=== PATIENT | male | born 1930 | race Caucasian/White ===

== ENCOUNTER 2016-11-30 10:55 | Emergency (ER) | payer OTHER ==
--- NOTE | 2016-11-30 10:27 | PROVIDER DOCUMENTATION ---
HPI-Head Injury - General Chief Complaint: Fall Stated Complaint: FAll Time Seen by Provider: 11/30/16 11:33 Source: patient, family, EMS - History of Present Illness-Head Injury Nature of Presenting Problem: A 86 y/o M fron senior care presented after he fell, described as turning and lost balance and fell hit his head, no reported LOC and no distress was sent in for evaluation, had small laceration on occipital region, denies symptoms Head Injury Location: reports: occipital Other injuries associated with incident:: reports: none Quality of Pain: reports: none Severity: reports: mild Onset/Duration: reports: just prior to arrival Timing: reports: still present Method of Injury: reports: fell Any recent trauma/injury?: reports: none Loss of Consciousness: no loss of consciousness Modifying Factors: improves with: nothing Locality of Occurance: Other Similar Symptoms Previously?: No Recently seen or treated by another doctor?: No Review of Systems - Adult - REVIEW OF SYSTEMS - ADULT Constitutional: reports: no symptoms reported Eyes: reports: no symptoms reported Ears, Nose, Mouth & Throat: reports: no symptoms reported Cardiovascular: reports: no symptoms reported Respiratory: reports: no symptoms reported Gastrointestinal: reports: no symptoms reported Genitourinary: reports: no symptoms reported Musculoskeletal: reports: no symptoms reported Integumentary: reports: no symptoms reported Neurological: reports: no symptoms reported Psychiatric: reports: no symptoms reported Endocrine: reports: no symptoms reported Hematologic/Lymphatic: reports: no symptoms reported Allergic/Immunologic: reports: no symptoms reported All Other Systems: Reviewed and Negative Past History - Adult - PAST MEDICAL HISTORY-ADULT Review of Records: reports: Old Records Reviewed, Nursing Assessment Review, Medications Reviewed, Social history reviewed & non-contributory. Major Childhood Illnesses: reports: denies history Cardiovascular: reports: denies history Respiratory: reports: denies history Gastrointestinal: reports: denies history Obstetrical/Gynecological: reports: denies history Genitourinary: reports: denies history Musculoskeletal: reports: denies history Neurological: reports: denies history Endocrine/Immune: reports: denies history Other Conditions: reports: denies history - FAMILY HISTORY Family History: reviewed, not pertinent Physical Exam- Neurological - Physical Exam-Neuro Initial Vital Signs Reviewed: Yes General Appearance: appears well, alert, no apparent distress Eye Exam: bilateral eye: normal inspection, PERRL, EOMI HENMT: moist mucous membranes, normal ENT inspection, other (1-2 cm laceration on occipital region no FB) Head Injury: negative: active bleeding, Owusu's Sign, contusions, raccoon eyes Neck: non-tender, full range of motion, supple Respiratory: chest non-tender, lungs clear, normal breath sounds, no pleuratic chest pain, no respiratory distress, no accessory muscle use Cardiovascular: normal peripheral pulses, regular rate, rhythm, no edema, no gallop, no JVD, no murmur Abdominal Exam: normal bowel sounds, non tender, soft Extremity: normal range of motion, non-tender, other (gait not tested as 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: normal hearing, normal speech, PERRL Coordination/Gait: normal finger to nose Motor/Sensory: no motor deficit, no sensory deficit, no pronator drift Integumentary: normal color, normal turgor, warm/dry Psych/Mental Status: normal mood/affect, oriented x 3 - Glascow Coma Scale Best Eye Response: (4) open spontaneously Best Verbal Response: (5) oriented Best Motor Response: (6) obeys commands Progress - PLAN OF CARE/RESULTS Progress/Plan/Lab Results: Orders Category Date Time Status ED: Orthostatic Vital Signs (E as directed Care 11/30/16 10:22 Active HEAD/C-SPINE W/O CONTRAST [CT] Stat Exams 11/30/16 10:20 Taken SHOULDER-LEFT [RAD] Stat Exams 11/30/16 10:21 Draft EKG [EKG] Stat Ther 11/30/16 10:21 Ordered Vital Signs Temp Pulse Pulse Pulse Pulse Resp BP 11/30/16 11:51 57 L 18 144/73 11/30/16 10:31 61 61 56 L 11/30/16 10:06 98.4 F 57 L 16 123/74 BP BP BP Pulse Ox 11/30/16 11:51 95 11/30/16 10:31 139/80 132/72 130/69 11/30/16 10:06 96 - REASSESSMENT Reassessment #1 Status: improving - XRAY 1 XRAY Study: Shoulder (no fracture, rotator cuff, as per pt had surgery in the past) - CT/MRI 1 CT Study: Head, Neck (normal exam) Impression: See EMR Report Departure - Departure Time of Disposition Order: 12:30 DIAGNOSIS: Fall Qualifiers: Encounter type: initial encounter Qualified Code(s): W19.XXXA - Unspecified fall, initial encounter Laceration of head Qualifiers: Encounter type: initial encounter Location of open wound of head: scalp Foreign body presence: without foreign body Qualified Code(s): S01.01XA - Laceration without foreign body of scalp, initial encounter Disposition: HOME 01 Certified Medical Emergency: Emergent Condition: Good - Critical Care Note Comments: Pt who presented after fall and had minor head laceration, no sutures and jet required as its superficial, steristrips placed no active bleeding, CT scan no acute problems, XR shoulder showed rotator cuff sees ortho for chronic problems, fall precautions, negative for orthostatics, stable will d/c to have close follow up with PCP
--- NOTE | 2016-11-30 11:24 | Diag Imaging Result Document ---
PROCEDURE NAME: SHOULDER-LEFT - 11/30/2016 LEFT SHOULDER, 3 VIEWS: FINDINGS: There are degenerative changes in the humeral head. The humeral head rides considerably high in the glenoid suggesting rotator cuff tear. There is acromioclavicular arthropathy as well. No evidence of fracture is present. IMPRESSION: Degenerative arthritis and probable rotator cuff tear.
== END 2016-11-30 12:43 | disposition home or self-care (01) ==
LOC: ED 10:55
DX: S01.01XA Laceration without foreign body of scalp, initial encounter (principal); W19.XXXA Unspecified fall, initial encounter
CPT/HCPCS: 70450; 72125; 93005

== ENCOUNTER 2019-03-04 08:01 | Inpatient (IN) ==
--- NOTE | 2019-03-04 08:01 | PROVIDER DOCUMENTATION ---
HPI-Fever - General Stated Complaint: FEVER/CHILLS Time Seen by Provider: 03/04/19 08:01 Source: patient, EMS Unable to obtain history due to:: other (has baseline dementia) Allergies/Adverse Reactions: Patient Allergies Allergy/AdvReac Type Severity Reaction Status Date / Time No Known Allergies Allergy Verified 03/04/19 08:28 Home Medications: Home Medication List Medication Instructions Recorded Confirmed Last Taken Type Bisoprolol/Hctz [Ziac 5/6.25 mg] 1 ea PO DAILY 01/13/19 01/29/19 01/29/19 11:32 History Donepezil [Aricept] 5 mg PO QAM 01/13/19 01/29/19 01/28/19 08:00 History Tamsulosin [Flomax] 0.4 mg PO DAILY 01/13/19 01/29/19 01/28/19 08:00 History Tiotropium Ramona [Spiriva 4 gm INHALATION DAILY 01/13/19 01/29/19 01/28/19 08:00 History Respimat] Trazodone [Desyrel] 2 tab PO QHS 01/13/19 01/29/19 01/28/19 21:00 History - History of Present Illness-Fever Nature of Presenting Problem: Brought from Assisted living for fever, chills, slight AMS, history of frequent UTIs. ALso has cough and COPD, uses home O2. Patient complains of bilateral aches/pains to legs, cogh, chills, and SOB. Fever Severity/Quality: reports: greater than 100.5 F Onset/Duration: reports: this morning Timing: reports: still present Severity: reports: moderate Context: reports: decreased mental status, confusion Recent Illness?: reports: UTI Fever Therapy NEUROLOGY PROFESSOR: Initiated none Cognitive Baseline: alert but disoriented Modifying Factors: improves with: nothing Associated Symptoms: reports: cough, fever/chills, loss of appetite, muscle aches, weakness Similar Symptoms Previously?: No Recently seen or treated by another doctor?: No - Glascow Coma Score Best Eye Response (Lu): (4) open spontaneously Best Verbal Response ([place]): (4) confused conversation Best Motor Response ([place]): (6) obeys commands Lu Total: 14 Review of Systems - Adult - REVIEW OF SYSTEMS - ADULT Constitutional: reports: no symptoms reported Eyes: reports: no symptoms reported Ears, Nose, Mouth & Throat: reports: no symptoms reported Cardiovascular: reports: no symptoms reported Respiratory: reports: no symptoms reported Gastrointestinal: reports: no symptoms reported Genitourinary: reports: no symptoms reported Musculoskeletal: reports: no symptoms reported Integumentary: reports: no symptoms reported Neurological: reports: no symptoms reported Psychiatric: reports: no symptoms reported Endocrine: reports: no symptoms reported Hematologic/Lymphatic: reports: no symptoms reported Allergic/Immunologic: reports: no symptoms reported All Other Systems: Reviewed and Negative Past History - Adult - PAST MEDICAL HISTORY-ADULT Review of Records: reports: Old Records Reviewed, Nursing Assessment Review, Medications Reviewed, Social history reviewed & non-contributory. Major Childhood Illnesses: reports: denies history Cardiovascular: reports: HTN Respiratory: reports: COPD Gastrointestinal: reports: denies history Obstetrical/Gynecological: reports: denies history Genitourinary: reports: cancer (prostate), chronic UTI's Musculoskeletal: reports: denies history Neurological: reports: Alzheimer's Endocrine/Immune: reports: denies history Other Conditions: reports: denies history - PRIOR SURGERIES/PROCEDURES Surgical/Procedure History: reports: reviewed, not pertinent - PRIOR HOSPITALIZATIONS Prior Hospitalizations: reports: for similar symptoms - IMMUNIZATION STATUS Childhood Immunizations: UTD Flu Vaccine: UTD Physical Exam-General - PHYSICAL EXAM-ADULT Initial Vital Signs Reviewed: Yes (bradycardia, tachypnea, otherwise normal) - CONSTITUTIONAL General Appearance: no apparent distress, slow to respond, other (active rigors, audibler ronchi) - EYES Eyes: PERRL/EOMI, pink conjunctivae - HEAD, EARS, NOSE, MOUTH & THROAT HENMT: normocephalic/atraumatic, normal ENT inspection, other (dry, pale mucous membranes) - NECK Neck: non-tender, full range of motion, supple, normal inspection - RESPIRATORY Respiratory: chest non-tender, no pleuratic chest pain, no respiratory distress, no accessory muscle use, decreased breath sounds, rales, rhonchi - CARDIOVASCULAR Cardiovascular: normal peripheral pulses, no edema, no gallop, no JVD, bradycardia, systolic murmur - GASTROINTESTINAL (ABDOMEN) Abdominal Exam: normal bowel sounds, non tender, soft, no organomegaly, no pulsatile mass - GENITOURINARY Male Genitalia: normal genitalia - MUSCULOSKELETAL Back Exam: normal inspection, no CVA tenderness, no vertebral tenderness Extremity: normal range of motion, non-tender, normal gait, normal inspection, no pedal edema, no calf tenderness - SKIN Integumentary: normal color, normal turgor, warm/dry - 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 as tested, grossly normal, no motor/sensory deficits - PSYCHIATRIC Psych/Mental Status: normal mood/affect, normal thought content, normal thought process, other (oriented to name only) Progress - PLAN OF CARE/RESULTS Progress/Plan/Lab Results: Vital Signs - 8 hr 03/04/19 08:20 03/04/19 08:22 03/04/19 09:01 Temperature 98.0 F Pulse Rate 59 L 58 L Respiratory Rate 18 21 Blood Pressure 148/80 148/80 147/75 O2 Sat by Pulse Oximetry 95 95 95 03/04/19 09:20 03/04/19 10:34 03/04/19 11:01 Temperature 98.5 F Pulse Rate 59 L Respiratory Rate 17 Blood Pressure 131/65 123/72 108/61 O2 Sat by Pulse Oximetry 97 96 92 L Laboratory Results - last 24 hr 03/04/19 03/04/19 03/04/19 08:12 08:12 08:12 WBC 12.84 H RBC 4.13 L Hgb 12.5 L Hct 38.4 L MCV 93.0 MCH 30.3 MCHC 32.6 L RDW Std Deviation 14.0 Plt Count 274 MPV 9.6 Immature Gran % (Auto) 0.4 Neut % (Auto) 65.7 Lymph % (Auto) 15.0 L [place] % (Auto) 16.7 H Eos % (Auto) 1.9 Baso % (Auto) 0.3 Immature Gran # (Auto) 0.05 H Neut # (Auto) 8.44 H Lymph # (Auto) 1.93 [place] # (Auto) 2.14 H Eos # (Auto) 0.24 Baso # (Auto) 0.04 PT 14.7 INR 1.07 PTT (Actin FS) 32.4 Specimen Type Sample Site pH pCO2 pO2 HCO3 Base Excess Oxyhemoglobin ABG O2 Sat (Calculated) ABG O2 Saturation ABG Carboxyhemoglobin ABG Methemoglobin Sung Test A-a O2 Difference Total Hemoglobin Lactate Liter Flow Blood Gas Modality FiO2 % Sodium 142 Potassium 4.3 Chloride 101 Carbon Dioxide 29 Anion Gap 12 BUN 19 Creatinine 1.0 Estimated GFR/1.73 m2 > 60 BUN/Creatinine Ratio 19 Glucose 116 H Calculated Osmolality 286 Calcium 8.6 L Total Bilirubin 1.09 H AST 10 ALT 5 L Alkaline Phosphatase 53 Creatine Kinase 25 Troponin T [id number] Pept Total Protein 6.1 L Albumin 3.2 L Globulin 2.9 Albumin/Globulin Ratio 1.1 Plasma Lactate Urine Source Urine Color Urine Turbidity Urine pH Ur Specific [place] Urine Protein Ur Glucose (Stick) Ur Ketones (Stick) Urine Blood Urine Nitrite Urine Bilirubin Urobilinogen Dipstick Urine Leukocytes Urine WBC (Auto) Urine RBC (Auto) U Epithel Cells (Auto) Urine Bacteria (Auto) 03/04/19 03/04/19 03/04/19 08:12 08:12 08:12 WBC RBC Hgb Hct MCV MCH MCHC RDW Std Deviation Plt Count MPV Immature Gran % (Auto) Neut % (Auto) Lymph % (Auto) [place] % (Auto) Eos % (Auto) Baso % (Auto) Immature Gran # (Auto) Neut # (Auto) Lymph # (Auto) [place] # (Auto) Eos # (Auto) Baso # (Auto) PT INR PTT (Actin FS) Specimen Type Sample Site pH pCO2 pO2 HCO3 Base Excess Oxyhemoglobin ABG O2 Sat (Calculated) ABG O2 Saturation ABG Carboxyhemoglobin ABG Methemoglobin Sung Test A-a O2 Difference Total Hemoglobin Lactate Liter Flow Blood Gas Modality FiO2 % Sodium Potassium Chloride Carbon Dioxide Anion Gap BUN Creatinine Estimated GFR/1.73 m2 BUN/Creatinine Ratio Glucose Calculated Osmolality Calcium Total Bilirubin AST ALT Alkaline Phosphatase Creatine Kinase Troponin T 0.023 Tup-U-Pwutwqzwzsp Pept 634 H Total Protein Albumin Globulin Albumin/Globulin Ratio Plasma Lactate 0.9 Urine Source Urine Color Urine Turbidity Urine pH Ur Specific [place] Urine Protein Ur Glucose (Stick) Ur Ketones (Stick) Urine Blood Urine Nitrite Urine Bilirubin Urobilinogen Dipstick Urine Leukocytes Urine WBC (Auto) Urine RBC (Auto) U Epithel Cells (Auto) Urine Bacteria (Auto) 03/04/19 03/04/19 08:25 08:42 WBC RBC Hgb Hct MCV MCH MCHC RDW Std Deviation Plt Count MPV Immature Gran % (Auto) Neut % (Auto) Lymph % (Auto) [place] % (Auto) Eos % (Auto) Baso % (Auto) Immature Gran # (Auto) Neut # (Auto) Lymph # (Auto) [place] # (Auto) Eos # (Auto) Baso # (Auto) PT INR PTT (Actin FS) Specimen Type ARTERIAL Sample Site R RADIAL pH 7.46 H pCO2 45 pO2 96 HCO3 30.5 H Base Excess 7.2 H Oxyhemoglobin 95.4 ABG O2 Sat (Calculated) 16.6 ABG O2 Saturation 98.2 ABG Carboxyhemoglobin 1.90 ABG Methemoglobin 1.0 Sung Test YES A-a O2 Difference 47.0 Total Hemoglobin 12.3 Lactate 0.80 Liter Flow 2.0 Blood Gas Modality CAN[place]ULA FiO2 % 28.0 Sodium Potassium Chloride Carbon Dioxide Anion Gap BUN Creatinine Estimated GFR/1.73 m2 BUN/Creatinine Ratio Glucose Calculated Osmolality Calcium Total Bilirubin AST ALT Alkaline Phosphatase Creatine Kinase Troponin T Jls-V-Attygjfjbmt Pept Total Protein Albumin Globulin Albumin/Globulin Ratio Plasma Lactate Urine Source CATH Urine Color YELLOW Urine Turbidity CLEAR Urine pH 5.5 Ur Specific [place] 1.013 Urine Protein NEGATIVE Ur Glucose (Stick) NEGATIVE Ur Ketones (Stick) NEGATIVE Urine Blood NEGATIVE Urine Nitrite NEGATIVE Urine Bilirubin NEGATIVE Urobilinogen Dipstick NORMAL Urine Leukocytes NEGATIVE Urine WBC (Auto) <10 Urine RBC (Auto) <10 U Epithel Cells (Auto) <10 Urine Bacteria (Auto) NEGATIVE Orders Category Date Time Status Cardiac Monitoring DIRECTED Care 03/04/19 08:04 Active IV Insertion ORDERED Care 03/04/19 08:04 Active CHEST-1 VIEW [RAD] Stat Exams 03/04/19 08:[address] THORAX/ABD/PELVIS W/CON [CT] Stat Exams 03/04/19 10:05 Completed ABG [RESP] Routine Lab 03/04/19 08:25 Completed BLOOD CULTURE [BLDCUL] Stat Lab 03/04/19 08:42 Results CBC WITH DIFF [HEME] Stat Lab 03/04/19 08:12 Completed CK PROFILE [SP CHEM] Stat Lab 03/04/19 08:12 Completed COMPREHENSIVE METABOLIC PANEL [CHEM] Stat Lab 03/04/19 08:12 Completed LACTATE, PLASMA [CHEM] Lab 03/04/19 11:15 Uncollected LACTATE, PLASMA [CHEM] Lab 03/04/19 14:15 Uncollected LACTATE, PLASMA [CHEM] Q3H Lab 03/04/19 08:12 Completed PRO B-NATRIURETIC PEPTIDE Stat Lab 03/04/19 08:12 Completed PROTIME WITH INR [COAG] Stat Lab 03/04/19 08:12 Completed PTT [COAG] Stat Lab 03/04/19 08:12 Completed TROPONIN T Stat Lab 03/04/19 08:12 Completed URINALYSIS W/POSS RFLX CULT [URINALYSIS] Stat Lab 03/04/19 08:42 Completed 0.9% Sodium Chloride Inj [Ns] 1,000 ml Med 03/04/19 08:05 Discontinued IV 999 mls/hr Albuterol 2.5MG/Ipratrop 0.5MG [Duoneb (A & A)] Med 03/04/19 08:05 Discontinued 3 ml INH NOW ONE Piperacillin/Tazobactam [Zosyn] 4.5 gm Med 03/04/19 09:19 Discontinued 0.9% Sodium Chloride Inj [Ns] 100 ml IV NOW Vancomycin 1 gm/Ns Med 03/04/19 09:19 Discontinued 1 gm in 250 ml IV NOW Aerosol Treatments Routine Oth 03/04/19 08:05 Completed Aerosol Treatments Stat Oth 03/04/19 08:05 Completed Oxygen Device Stat Oth 03/04/19 08:04 Completed Result Diagrams: 03/04/19 08:12 03/04/19 08:12 - REASSESSMENT Reassessment #1 Time Reassessed: 11:37 Status: improving (Given Neb treatment and IVF, in case of CAP or post- obstruction pne, given Vanc/Zosyn) - XRAY 1 XRAY: (Given Neb treatment and IVF, in case of CAP or post-obstruction pne, given Vanc/Zosyn. Family called to ER from out of town to speak with social work case manager, they want eventual half-way care, not return to assisted living.) XRAY Study: Chest Impression: Abnormal, See EMR Report (CHEST-1 VIEW - 03/04/2019 INDICATION: sob. fever COMPARISON: 02/14/2019 FINDINGS: There is a left apical pulmonary mass. This measures 4 cm. No infiltrates. Stable COPD. Heart size remains normal. IMPRESSION: Left apical pulmonary mass. Chest CT recommended if this has not already been performed. Electronically signed by Karson Finn 03/04/2019 8:23 AM 03/04/19 08 Interpreting Physician: Karson Finn MD Dictated Date/Time: 03/04/19821 cc: Paul Javier MD; Arielle Lopez MD) - CT/MRI 1 CT Study: Thorax (and abdominal/pelvis) Impression: Abnormal, See EMR Report (EXAM: CT THORAX/ABD/PELVIS W/CON 03/04/2019 HISTORY: left lung mass, new TECHNIQUE: This exam was performed using automated exposure control, adjustment of mA or kV according to patient size, and/or use of iterative reconstruction technique. COMMENT: There are no previous studies available for comparison. There is a mass attached to the mediastinal pleura in the left upper lobe measuring 3.5 x 3.3 cm in the axial plane. There is some emphysematous change and prominence of the interstitial spaces particularly in the left upper lobe. The latter may be related to lymphatic obstruction. There is otherwise no evidence of acute pulmonary disease. There are some nonspecific aorticopulmonary window and paratracheal nodes. One such node on image 41 measures up to 14 mm. There are no pleural fluid collections. There is left hilar adenopathy. There are no apparent filling defects present in the pulmonary arterial branches. The right upper lobe pulmonary artery is somewhat compressed by the adenopathy. There is occlusion of the left upper lobe bronchus. There are spondylotic changes in the thoracic spine. There are degenerative changes in the left shoulder. There are old rib fractures in the right ninth, 10th and 11th ribs. ABDOMEN: There are atherosclerotic calcifications in the aorta and iliac arteries. There is no significant aneurysm and there is calcification present in the proximal superior mesenteric and renal arteries without evidence of occlusion. There are granulomata in the liver. There has been cholecystectomy. There is a cyst in the posterior right lobe on image 15 of the portal venous phase. The adrenal glands are not enlarged. The spleen is not enlarged. The pancreas is normal in appearance. There are cysts in the kidneys. There is no evidence of hydronephrosis. There is extensive colonic diverticulosis and stool is present throughout the colon. The appendix is normal in appearance. There is no evidence of bowel obstruction or retroperitoneal adenopathy. Pelvis: There are severe degenerative disc and facet changes in the lumbar spine. There is no evidence of free fluid. There is slight dilatation of the distal left ureter as it passes over the external iliac vein of uncertain significance. The urinary bladder is not distended. The prostate gland measures 5.1 cm in diameter. IMPRESSION: 1. Left upper lobe malignant appearing mass with bronchial obstruction and hilar adenopathy. This appears to be adherent to the mediastinal pleura. 2. Severe colonic diverticulosis without evidence of acute diverticulitis. No evidence of metastatic disease. Electronically signed by Ok Vaughan 03/04/2019 10:48 AM 03/04/19 1048 Interpreting Physician: Ok Vaughan MD Dictated Date/Time: 03/04/19 1034 cc: Paul Javier MD; Arielle Lopez MD) - CONSULTS/PCP/HOSPITALIST Notification #1 *Consult/PCP/Hospitalist*: JOSE LUIS Goetz Time Discussed: 11:38 (admit to [facility]) Consult Disposition: Will see in ED Departure - Departure Date of Disposition Decision: 03/04/19 Time of Disposition Decision: 11:38 DIAGNOSIS: COPD with exacerbation, Mass of upper lobe of left lung, History of malignant neoplasm of prostate Disposition: ADMITTED INPATIENT 09 Certified Medical Emergency: Emergent Condition: Fair Referrals and Follow-Ups: Arielle Lopez MD [Primary Care Provider] - - Critical Care Note This patient required my direct & personal management of CC.: No Attestation - Physician/ MALIK Attestation Patient care was provided by Advanced Practice Provider:: No The physician spent face to face time with patient:: Yes Advanced Practice Provider documentation review:: Supervising physician onsite and consulted in the evaluation and care of this patient. The physician did have a face to face encounter with the patient.
[2019-03-04] MEDS ORDERED: NS 1,000 ML IV ONE (08:05)
[2019-03-04] MEDS ORDERED: DUONEB (A & A) INH ONE (08:05)
--- NOTE | 2019-03-04 08:25 | Diag Imaging Result Doc PS360 ---
CHEST-1 VIEW - 03/04/2019 INDICATION: sob. fever COMPARISON: 02/14/2019 FINDINGS: There is a left apical pulmonary mass. This measures 4 cm. No infiltrates. Stable COPD. Heart size remains normal. IMPRESSION: Left apical pulmonary mass. Chest CT recommended if this has not already been performed. Electronically signed by Karson Finn 03/04/2019 8:23 AM
[2019-03-04 08:31] LABS: ALLEN TEST YES; BE 7.2 mmoll (-3.0-3.0); BLOOD TYPE ARTERIAL; HCO3-(ACT) 30.5 mmoll (20.0-26.0); O2(CT) 16.6 mL/dL (15.0-23.0); O2HB 95.4 % (95.0-99.0); PCO2(98.6) 45 mmHg (35-45); PO2(98.6) 96 mmHg (60-100); SAMPLE BLOOD; SAO2 98.2 % (95.0-100.0); THB 12.3 g/dL (11.5-17.4); pH(98.6) 7.46 (7.35-7.45)
[2019-03-04 08:32] LABS: MODALITY CANNULA
[2019-03-04 08:33] LABS: BASO# 0.04 X1000 (0.0-0.2); BASO% 0.3 % (0.0-0.8); EOS# 0.24 X1000 (0.0-0.7); EOS% 1.9 % (0.0-10.0); HEMATOCRIT 38.4 % (42.0-52.0); HEMOGLOBIN 12.5 g/dL (14.0-18.0); IMM GRAN# 0.05 X1000 (0.0-0.04); IMM GRAN% 0.4 % (0.0-0.5); LYMPH# 1.93 X1000 (1.2-3.4); MCH 30.3 PG (27-31); MCHC 32.6 g/dL (33-37); MONO# 2.14 X1000 (0.11-0.59); MONO% 16.7 % (1.7-9.3); MPV 9.6 FL (7.4-10.4); NEUT# 8.44 X1000 (1.4-6.5); NEUT% 65.7 % (42.2-75.2); PLT 274 X1000 (130-400); RBC 4.13 XMIL (4.7-6.1); WBC 12.84 X1000 (4.8-10.8)
[2019-03-04 08:45] LABS: INR 1.07; PROTIME 14.7 Seconds (11.0-16.0)
[2019-03-04 08:46] LABS: PTT 32.4 Seconds (22.3-41.8)
[2019-03-04 08:50] LABS: AGAP 12; ALB/GLOB RATIO 1.1; ALBUMIN 3.2 g/dL (3.5-5.0); ALKALINE PHOSPHATASE 53 U/L (32-122); BUN 19 mg/dL (8-22); CALCIUM 8.6 mg/dL (8.8-10.2); CHLORIDE 101 mmol/L (98-107); CK PROFILE 25 U/L (24-204); COSMO 286; ESTIMATED GFR > 60; GLUCOSE 116 mg/dL (70-104); GOT 10 U/L (10-34); GPT 5 U/L (10-44); POTASSIUM 4.3 mmol/L (3.5-5.1); SODIUM 142 mmol/L (136-145); TCO2 29 mmol/L (25-35); TOTAL BILIRUBIN 1.09 mg/dL (0.20-1.00); TOTAL PROTEIN 6.1 g/dL (6.3-8.3)
[2019-03-04 08:51] LABS: URINE SOURCE CATH
[2019-03-04 08:58] LABS: BILIRUBIN URINE NEGATIVE (NEGATIVE); BLOOD URINE NEGATIVE (NEGATIVE); COLOR YELLOW; GLUCOSE URINE NEGATIVE (NEGATIVE); KETONE URINE NEGATIVE (NEGATIVE); LEUKOCYTES URINE NEGATIVE (NEGATIVE); NITRITE URINE NEGATIVE (NEGATIVE); PH URINE 5.5; PROTEIN URINE NEGATIVE (NEGATIVE); SP GRAVITY URINE 1.013; TURBIDITY URINE CLEAR (CLEAR); UROBILINOGEN URINE NORMAL (NORMAL)
[2019-03-04 09:00] LABS: UR EPITHELIAL CELLS <10 /HPF (<10); URINE BACTERIA NEGATIVE /HPF; URINE RBC <10 /HPF (<10); URINE WBC <10 /HPF (<10)
[2019-03-04] MEDS ORDERED: VANCOMYCIN 1 GM/NS 1 GM/250 ML IVPB IV ONE (09:19)
[2019-03-04] MEDS ORDERED: ZOSYN 4.5 GM in NS 100 ML IV ONE (09:19)
--- NOTE | 2019-03-04 10:50 | Diag Imaging Result Doc PS360 ---
EXAM: CT THORAX/ABD/PELVIS W/CON 03/04/2019 HISTORY: left lung mass, new TECHNIQUE: This exam was performed using automated exposure control, adjustment of mA or kV according to patient size, and/or use of iterative reconstruction technique. COMMENT: There are no previous studies available for comparison. There is a mass attached to the mediastinal pleura in the left upper lobe measuring 3.5 x 3.3 cm in the axial plane. There is some emphysematous change and prominence of the interstitial spaces particularly in the left upper lobe. The latter may be related to lymphatic obstruction. There is otherwise no evidence of acute pulmonary disease. There are some nonspecific aorticopulmonary window and paratracheal nodes. One such node on image 41 measures up to 14 mm. There are no pleural fluid collections. There is left hilar adenopathy. There are no apparent filling defects present in the pulmonary arterial branches. The right upper lobe pulmonary artery is somewhat compressed by the adenopathy. There is occlusion of the left upper lobe bronchus. There are spondylotic changes in the thoracic spine. There are degenerative changes in the left shoulder. There are old rib fractures in the right ninth, 10th and 11th ribs. ABDOMEN: There are atherosclerotic calcifications in the aorta and iliac arteries. There is no significant aneurysm and there is calcification present in the proximal superior mesenteric and renal arteries without evidence of occlusion. There are granulomata in the liver. There has been cholecystectomy. There is a cyst in the posterior right lobe on image 15 of the portal venous phase. The adrenal glands are not enlarged. The spleen is not enlarged. The pancreas is normal in appearance. There are cysts in the kidneys. There is no evidence of hydronephrosis. There is extensive colonic diverticulosis and stool is present throughout the colon. The appendix is normal in appearance. There is no evidence of bowel obstruction or retroperitoneal adenopathy. Pelvis: There are severe degenerative disc and facet changes in the lumbar spine. There is no evidence of free fluid. There is slight dilatation of the distal left ureter as it passes over the external iliac vein of uncertain significance. The urinary bladder is not distended. The prostate gland measures 5.1 cm in diameter. IMPRESSION: 1. Left upper lobe malignant appearing mass with bronchial obstruction and hilar adenopathy. This appears to be adherent to the mediastinal pleura. 2. Severe colonic diverticulosis without evidence of acute diverticulitis. No evidence of metastatic disease. Electronically signed by Ok Vaughan 03/04/2019 10:48 AM
--- NOTE | 2019-03-04 14:46 | HISTORY AND PHYSICAL ---
PRIMARY CARE PROVIDER: Arielle Lopez. CHIEF COMPLAINT: Per ED notes, fever, chills, malaise. HISTORY OF PRESENT ILLNESS: Mr. Johnson is an 88-year-old gentleman, who per ED report has a past medical history of frequent UTIs, COPD and uses home O2, as well as a baseline dementia. He cannot really tell me what brought him to the ED except that he was being sent home back to his assisted living. He is alert to his name, date of , president and where he lives. He could not tell me the correct year or where he was. He denied any headache, fever, chills, cough, shortness of breath, chest pain, palpitations, abdominal pain. No nausea, vomiting, or diarrhea. He did state that he does have problems with his urination but he could not really elaborate on what kind. Case Management has spoken with the power of patent prosecution attorney, his son Valentin Johnson, who is currently out of town. He reports they do in fact lives at [facility] in [place]. They have paid caregivers. Son has become increasingly concerned about his decline in mobility status and does want to pursue rehab transition to long-term care. While the patient was being initially worked up for sepsis secondary to a low-grade fever, on his chest x- ray he had a left atypical pulmonary mass that recommend a followup CT. The CT of the chest, abdomen and pelvis showed a left upper lobe malignant-appearing mass with bronchial obstruction and hilar adenopathy. Appears to be adherent to mediastinal pleura. Severe colonic diverticulitis without evidence of acute diverticulitis. No evidence of metastatic disease. The patient had recently been diagnosed with a prostate cancer back in January. He underwent a TURP with Dr. Ramy demarco on January 30. A nuclear bone scan back in February showed multi joint degenerative uptake, most prominent at the shoulders, bandlike increased uptake at the mid thoracic spine. We do not believe that he has been set up with any oncology and we will go ahead and consult Oncology as well as Palliative Care and admit him to the medical telemetry floor for COPD exacerbation. PAST MEDICAL HISTORY: 1. New diagnosis of prostate cancer, now with a left upper lobe malignant- appearing mass with bronchial obstruction and hilar adenopathy. 2. Prostate cancer, recent diagnosis back in January. 3. Frequent UTIs. 4. COPD. 5. Alzheimer's dementia. PAST SURGICAL HISTORY: Status post TURP with Dr. Mccann on 01/30/2019. All others unknown. Patient denied. He does appear to have what appears to look like several skin cancer spots removed off of his head in various places. FAMILY HISTORY: Unknown. SOCIAL HISTORY: He lives at [facility] where he has caregivers. He lives with his . He does have a son who is power of patent prosecution attorney. REVIEW OF SYSTEMS: Hard to obtain secondary to the patient's Alzheimer's dementia, except for those mentioned in HPI. PHYSICAL EXAMINATION: VITAL SIGNS: Temperature is 98.5 degrees, heart rate 51, respirations 18, blood pressure 110/55, O2 is 95% on 2 L nasal cannula. The patient keeps taking it off. He does wear home O2 for his COPD. GENERAL: Mr. Johnson is an 88-year-old male who is lying on the stretcher continually. HEENT: Atraumatic, normocephalic. PERRL. NECK: Supple. Trachea midline. CARDIOVASCULAR: S1, S2 appreciated. No murmurs, gallops, rubs noted. RESPIRATORY: Lung sounds decreased in all lung marcial. GASTROINTESTINAL: Soft, nontender, nondistended. Positive bowel sounds 4 quadrants. SKIN: Appears to be warm, dry, and intact. EXTREMITIES: No clubbing, no cyanosis. Bilateral pedal pulses are palpable. NEUROLOGIC: Patient is alert to name, date of , president. He does not know the current year or his current location, but he knows he lives at [facility] in [place]. DIAGNOSTIC DATA: Per HPI. LABORATORY DATA: White count 12, hemoglobin and hematocrit 12 and 38, platelet count is 274,000. Sodium 142, potassium 4.3, BUN 19, creatinine 1, blood glucose is 116. T bilirubin is 1.09. ProBNP 634. Albumin 34. Plasma lactate was 0.9. Urinalysis is negative for bacteria or nitrites. ASSESSMENT AND PLAN: 1. Left upper lobe malignant-appearing mass with bronchial obstruction and hilar adenopathy. Appears to be adherent to the mediastinal pleura. We will consult Palliative Care, Telemetry Tech and Pulmonary as well as Oncology. 2. Known prostate cancer. Patient underwent a TURP with Dr. Mccann back in January 2019. 3. Chronic obstructive pulmonary disease on home O2, mild exacerbation. We will continue with bronchodilators, supplemental O2, aggressive pulmonary toilet, IV antibiotics. 4. Questionable postobstructive pneumonia. We will continue with IV antibiotics. Follow Pulmonology's recommendations. 5. Chronic urinary tract infections. The patient denies any urinary symptoms. His urinalysis is negative. 6. Alzheimer's dementia. Aware. 7. Further recommendations to follow physician evaluation, laboratory and diagnostic data. Dictated by JOSE LUIS Peoples for Jordana Carreno MD cc: MD Arielle Cisneros MD William E. Hughes, MD Heather Shah, MD I performed a face to face encounter on the patient. I reviewed all imaging and labs on the patient. I agree with the H&P as dictated. is a 88 year old male with a history of dementia, prostate cancer, and COPD who was sent from a local assisted living facility due to fever, chills and general malaise. The patient initially had a chest x ray done that revealed a possible lung mass. A CT of the chest, abdomen and pelvis was done that revealed a left upper lobe mass with bronchial obstruction and hilar adenopathy. On exam, the patient has diminished breath sounds in all lung marcial. No wheezing, rales or rhonchi were noted. The patient will be admitted for further treatment and evaluation. Will consult pulmonary and oncology. The patient will be scheduled for a CT guided lung biopsy. JODY
[2019-03-04] MEDS: DUONEB (A & A) INH SCH ×3 (15:30→23:05)
[2019-03-04] MEDS: LEVAQUIN 500 MG/D5W 500 MG/100 ML IVPB IV SCH (18:19)
[2019-03-04] MEDS: SOLU-MEDROL IV SCH (18:21)
[2019-03-04] MEDS ORDERED: DESYREL PO SCH (21:00)
--- NOTE | 2019-03-04 21:02 | HEMO/ONC CONSULTATION ---
DATE: 03/04/2019 REQUESTING: Dr. Carreno. REASON FOR CONSULTATION: Prostate cancer and lung mass. HISTORY OF PRESENT ILLNESS: Mr. Johnson is an 88-year-old gentleman with some dementia, who lives with his in an assisted living facility with around the clock caregivers. He is unable to provide much history at this time because of his dementia, but apparently he was developing worsening difficulty with urination, fevers, and chills. He was brought to the emergency room where he was evaluated for the same. PAST MEDICAL HISTORY: Significant for: 1. Prostate cancer diagnosed in January 2019, status post TURP with Dr. Mccann. 2. Alzheimer's. 3. COPD. 4. Frequent UTIs. PAST SURGICAL HISTORY: 1. TURP, January 2019. 2. Unable to obtain any further medical history as patient is unaccompanied and is unsure of his medical history. FAMILY HISTORY: Unable to be obtained. SOCIAL HISTORY: Per the emergency room and the nurses, he lives at [facility] with caregivers and his . His son is power of claims attorney. ALLERGIES: Reviewed, per the chart. MEDICATIONS: Reviewed, per the chart. REVIEW OF SYSTEMS: Unable to be obtained secondary to dementia. PHYSICAL EXAMINATION: Vital Signs: At the time of consultation, temperature 97.4, pulse 58, respiratory rate 19, blood pressure 131/73, O2 saturation 100% on 2 L. Weight is 170 pounds. General: This is a chronically ill-appearing, elderly man in no acute distress, but with some rigors during consultation, lying in the hospital bed, accompanied by the nurses with no family at the bedside. Eyes: Sclerae anicteric. Cardiovascular: Regular rate and rhythm. Normal S1, S2. No murmurs, rubs, or gallops. Pulmonary: Lungs clear to auscultation bilaterally without wheezes, rales, or rhonchi. GI: Abdomen is soft, nontender, nondistended, with normoactive bowel sounds. Extremities: No clubbing, cyanosis, or edema. 2+ pulses x4. Neurologic: Alert and oriented to name only, but is disoriented otherwise. Moves all extremities well. Gait not assessed as patient is in the hospital bed during consultation. LABORATORY DATA: White count 12.8, hemoglobin 12.5, platelet count 274,000. INR 1.07. ABGs: PH 7.46, pCO2 45, pO2 96. Chemistry panel notable for calcium 8.6, total bilirubin 1.09, AST 10, ALT 5, alkaline phosphatase 53, troponin 0.023, total protein 6.1, albumin 3.2. Urinalysis is unremarkable. Blood cultures are pending. IMAGING: Chest, abdomen, and pelvis CT shows a left upper lobe 3.5 x 3.3 cm mass attached to the mediastinal pleura, with emphysematous changes and possible lymphatic obstruction, as well as nonspecific AP window and paratracheal adenopathy and occlusion of the left upper lobe bronchus. There is no evidence of metastatic disease. Nuclear bone scan, from 02/12/2019, showed multijoint degenerative uptake, most prominent at the shoulders. PATHOLOGY: 01/29/2019, prostatic adenocarcinoma, Diego 4 + 4 equals 8 in 3 cores on the left prostate gland, and prostate adenocarcinoma grade, [place] 3 + 3 equals 6 in 1 core on the left as well as 1 core on the right. Prostate cancer, Diego score 3 + 4 equals 7 in 3 cores on the right. ASSESSMENT AND PLAN: 1. Prostate cancer: The patient is status post transurethral resection of prostate with Dr. Mccann, and is being followed by Dr. Mccann, and is on Casodex at this time. I will defer further management of his prostate cancer to Dr. Mccann as it does not appear to be an acute issue. 2. Lung mass: Highly suspicious for malignancy. We will get in touch with the patient's son, who has power of claims attorney, to discuss goals of care and extent of workup that the patient and his family desire. He certainly could undergo bronchoscopy and biopsy of the suspicious lesion as it is endobronchial. However, he is a poor candidate for therapy, which would likely include chemotherapy and radiation. We will discuss goals of care. Palliative Care consult has already been placed. We will follow up through his hospital stay. 3. Fevers and chills: Suspicious for postobstructive pneumonia. He received a dose of vancomycin and Zosyn in the emergency room, and is now on Levaquin. Follow up on cultures. Thank you for this consultation and the opportunity to participate in the care of this patient. I will follow along and leave further recommendations as indicated. cc: MD Jordana Schneider MD
[2019-03-05] MEDS: SOLU-MEDROL IV SCH ×5 (01:35→21:19)
--- NOTE | 2019-03-05 02:17 | CONSULTATION ---
DATE OF CONSULTATION: 03/04/2019 REQUESTING PROVIDER: JOSE LUIS Peoples. REASON FOR CONSULTATION: Metastatic lung cancer from Prostate. HISTORY OF PRESENT ILLNESS: This is an 88-year-old male with a medical history of COPD, prostatic cancer, facial skin cancer, frequent UTIs, hypertension, and Parkinson disease. He presented to the ER from [facility] with fever, chills, and slight altered mental status. Initial workup in the ER revealed COPD exacerbation, left upper lobe malignant appearing mass with bronchial obstruction and hilar adenopathy, and questionable postobstructive pneumonia. He has been admitted to the medical floor for further evaluation and management. I saw patient at around 1530. At that time, he was resting in bed with no acute cardiac or pulmonary distress. He did appear drowsy. He had constant rhythmic fine tremors on his upper body and bilateral upper extremities. He reported that he was cold and asked me to put more blankets on him. He stated he had fever and shortness of breath this morning and that is why he was sent to the hospital. He reported he has a good appetite, but he could not feed himself because of tremors. He reported that he does not use oxygen at home, and he has been on oxygen since this morning. He denies cough, wheezing, chest pain, or abdominal pain. He also stated that he was tired and he would like to get some rest. The nurse at the bedside reported that she just talked to the patient's son, Valentin, over the phone. Per his son, patient apparently was alert and oriented x3, and was able to answer questions appropriately. PAST MEDICAL HISTORY: Obtained from patient's son, Valentin. 1. COPD. 2. Prostatic cancer diagnosed in January, status post TURP on 01/30/2019. Followed by Dr. Mccann. 3. Facial skin cancer status post radiation. 4. Frequent UTIs. 5. Hypertension. 6. Parkinson disease. SOCIAL HISTORY: The patient lives at [facility] assisted living with his . His son, Valentin, is his power of attorney at law. FAMILY HISTORY: Unknown. ALLERGIES: No known drug allergies. REVIEW OF SYSTEMS: Difficult to be completed, except for those mentioned in HPI. PHYSICAL EXAMINATION: Vital Signs: Temperature 98.5 degrees, blood pressure 110/55, pulse 51, respiratory rate 18, oxygen saturation 95% on nasal cannula at 2 L. General: Chronically ill- appealing, resting in bed with no acute cardiac or pulmonary distress. The patient has constant rhythmic fine tremors on his upper body and bilateral upper extremities. HEENT: Atraumatic. Trachea midline. Mucosa pink and moist. Respiratory: Even and unlabored auscultation. Symmetrical excursion. Auscultation revealed prolonged expiratory phase and moderate expiratory wheezing bilaterally, and early inspiratory crackles bibasilarly with diminished breathing sounds bilaterally. Cardiovascular: Regular rate and rhythm. Gastrointestinal: Bowel sounds normoactive in all 4 quadrants. Soft, nontender, nondistended. Extremities: Trace pedal edema. No cyanosis. No clubbing. Dorsalis pedis 2+ bilaterally. Neurologic: Alert, oriented to person, place, and situation, but not time. Speech fluent. Follows commands. LAB DATA: White blood cells 12.84, hemoglobin 12.5, hematocrit 38.4, platelet 274,000. Sodium 142, potassium 4.3, chloride 101, carbon dioxide 29, BUN 19, creatinine 1.0. Glucose 116. ProBNP 634. ABG, pH 7.46, pCO2 of 45, PO2 of 96, HCO3 is 30.5, base excess 7.2, and oxyhemoglobin 95.4. IMAGING DATA: CT thorax, abdomen and pelvis with contrast revealed left upper lobe malignant-appearing mass with bronchial obstruction and hilar adenopathy. This appears to be adherent to the mediastinal pleura. Severe colonic diverticulosis without evidence of acute diverticulitis. No evidence of metastatic disease. ASSESSMENT: This is an 88-year-old male with a medical history of chronic obstructive pulmonary disease, prostate cancer, facial skin cancer, frequent urinary tract infection, hypertension, and Parkinson disease. He has been admitted to the medical floor today with chronic obstructive pulmonary disease exacerbation, left upper lobe malignant appearing mass with bronchial obstruction and hilar adenopathy, and questionable postobstructive pneumonia. 1. Acute hypoxic respiratory failure. 2. Chronic obstructive pulmonary disease exacerbation. 3. Left upper lobe malignant-appearing mass with bronchial obstruction and hilar adenopathy, suspected metastatic prostate cancer. The patient's son, Curtis, wants to proceed with the CT- guided biopsy. 4. Recently diagnosed prostate cancer. Followed by Dr. Mccann. 5. Questionable postobstructive pneumonia. PLAN: 1. Continue supplemental oxygen. 2. Continue antibiotic, steroid, and bronchodilators. 3. CT-guided biopsy scheduled. 4. Follow-up with chest x-ray, CBC, CMP, and blood culture. 5. Further recommendations pending hospital course. Thank you for the courtesy of this consult. Dictated by JOSE LUIS Scott for Ricardo Hyde MD cc: JOSE LUIS Scott MD [facility]
[2019-03-05] MEDS: DUONEB (A & A) INH SCH ×5 (03:05→21:10)
[2019-03-05 06:45] LABS: BASO# 0.01 X1000 (0.0-0.2); BASO% 0.1 % (0.0-0.8); HEMATOCRIT 35.5 % (42.0-52.0); HEMOGLOBIN 11.6 g/dL (14.0-18.0); IMM GRAN# 0.02 X1000 (0.0-0.04); IMM GRAN% 0.2 % (0.0-0.5); LYMPH# 0.67 X1000 (1.2-3.4); MCH 30.4 PG (27-31); MCHC 32.7 g/dL (33-37); MCV 92.9 FL (81-99); MONO# 0.68 X1000 (0.11-0.59); MONO% 6.1 % (1.7-9.3); MPV 9.9 FL (7.4-10.4); NEUT# 9.73 X1000 (1.4-6.5); NEUT% 87.6 % (42.2-75.2); PLT 250 X1000 (130-400); RBC 3.82 XMIL (4.7-6.1); RDW 13.8 % (11.5-14.5); WBC 11.11 X1000 (4.8-10.8)
[2019-03-05 06:56] LABS: AGAP 14; ALB/GLOB RATIO 0.8; ALBUMIN 2.9 g/dL (3.5-5.0); ALKALINE PHOSPHATASE 48 U/L (32-122); BUN 20 mg/dL (8-22); CALCIUM 8.4 mg/dL (8.8-10.2); CHLORIDE 101 mmol/L (98-107); COSMO 285; ESTIMATED GFR > 60; GLUCOSE 150 mg/dL (70-104); GOT 10 U/L (10-34); GPT 6 U/L (10-44); POTASSIUM 3.9 mmol/L (3.5-5.1); SODIUM 140 mmol/L (136-145); TCO2 25 mmol/L (25-35); TOTAL BILIRUBIN 0.45 mg/dL (0.20-1.00); TOTAL PROTEIN 6.7 g/dL (6.3-8.3)
--- NOTE | 2019-03-05 08:17 | Diag Imaging Result Doc PS360 ---
EXAM: CHEST-PORTABLE 03/05/2019 HISTORY: short of breath TECHNIQUE: AP portable upright at 0805 COMMENT: There is a left apical mass. This was also demonstrated on 03/04/2019 on plain radiography and CT. Considering differences in technique there has been no appreciable change. IMPRESSION: Stable chest. Electronically signed by Ok Vaughan 03/05/2019 8:15 AM
--- NOTE | 2019-03-05 12:07 | Diag Imaging Result Doc PS360 ---
CHEST-2 VIEWS - 03/05/2019 11:58 AM INDICATION: POST LUNG BIOPSY COMPARISON: 8:05 AM FINDINGS: There is no visible pneumothorax. IMPRESSION: No complication. Electronically signed by Karson Finn 03/05/2019 12:05 PM
[2019-03-05] MEDS: FLOMAX PO SCH (12:39)
[2019-03-05] MEDS: CASODEX PO SCH (12:39)
[2019-03-05] MEDS: ARICEPT PO SCH (12:40)
[2019-03-05] MEDS: LEVAQUIN 500 MG/D5W 500 MG/100 ML IVPB IV SCH (13:40)
--- NOTE | 2019-03-05 16:05 | Diag Imaging Result Doc PS360 ---
CT GUIDED BIOPSY LUNG - 03/05/2019 INDICATION: ASTHAM/COPD TECHNIQUE: The risks and benefits of the procedure were discussed with the patient. All questions were answered. Written and verbal informed consent was obtained. Overlying skin was prepped and draped in sterile fashion. Anesthesia was achieved with injection of 10 cc of 1% lidocaine. COMPARISON: CT from 03/04/2019 FINDINGS: The left upper lobe pulmonary nodule was biopsied using the 6/11 cm 19/20 gauge Temno needle set. 10 biopsy specimens were obtained. The needles were withdrawn intact. The patient reported no symptoms from the procedure. IMPRESSION: Successful and uncomplicated CT-guided left upper lobe pulmonary nodule biopsy. Electronically signed by Karson Finn 03/05/2019 4:03 PM
--- NOTE | 2019-03-05 19:10 | PROGRESS NOTE ---
DATE: 03/05/2019 SUBJECTIVE: The patient is resting comfortably. He underwent CT-guided lung biopsy this morning. OBJECTIVE: Vital Signs: Temperature 97.9 degrees, blood pressure 145/81, heart rate 77, O2 saturation 95% on room air. General: This is a chronically ill-appearing elderly male lying in bed in no acute distress. Heart: S1, S2 normal. Regular rate and rhythm. Lungs: Equal air entry bilaterally. Abdomen: Positive bowel sounds. Soft, nontender, nondistended. Extremities: No calf tenderness, peripheral pulses palpable. Neuro: The patient is awake and alert. LABS: White blood cell count 11, hemoglobin 11, hematocrit 35, platelets 250,000, sodium 140, potassium 3.9, chloride 101, CO2 25, BUN 20, creatinine 1, glucose 150. ASSESSMENT AND PLAN: 1. Left upper lobe mass. The patient underwent a CT-guided biopsy today. Will await the pathology report. 2. Possible postobstructive pneumonia. Continue with antibiotic and bronchodilator therapy . 3. Chronic obstructive pulmonary disease. Continue on the current treatment regimen. 4. Prostate cancer. Aware. 5. Dementia. Continue on Aricept. Disposition: account services manager is working on inpatient rehab placement for the patient. cc: Jordana Carreno MD MTDD
--- NOTE | 2019-03-05 21:48 | PULMONOLOGY PROGRESS NOTE ---
DATE: 03/05/2019 SUBJECTIVE: The patient is awake, alert, and conversant. He underwent a biopsy earlier this morning. He is not happy with the sandwich and chips that was provided for lunch. OBJECTIVE: Vital Signs: BP 133/39, heart rate 77, respiration rate 16, oxygen saturation 95% on room air. HEENT: Pupils are equal and reactive. Oropharynx is clear. Neck: supple. Chest: Reveals prolonged expiratory phase. Cardiac: S1, S2. Abdomen: Soft. Extremities: Without edema. LABORATORIES: Chest x-ray following biopsy reveals no pneumothorax. IMPRESSION: 1. An 88-year-old with lung mass. 2. Status post CT-guided biopsy. 3. Dementia. 4. Prostate cancer. RECOMMENDATIONS: 1. Continue to observe following CT-guided biopsy. 2. The patient will likely be a candidate for discharge tomorrow from a pulmonary standpoint if he continues to do well. cc: Judson López MD MTDD
[2019-03-06] MEDS: SOLU-MEDROL IV SCH ×4 (06:44→20:22)
[2019-03-06] MEDS: PRILOSEC PO SCH (06:44)
[2019-03-06 07:17] LABS: HEMOGLOBIN 11.6 g/dL (14.0-18.0); IMM GRAN# 0.04 X1000 (0.0-0.04); IMM GRAN% 0.3 % (0.0-0.5); LYMPH# 0.84 X1000 (1.2-3.4); LYMPH% 6.8 % (20.5-51.1); MCH 30.2 PG (27-31); MCHC 33.1 g/dL (33-37); MCV 91.1 FL (81-99); MONO# 0.83 X1000 (0.11-0.59); MONO% 6.8 % (1.7-9.3); MPV 10.2 FL (7.4-10.4); NEUT# 10.57 X1000 (1.4-6.5); NEUT% 86.1 % (42.2-75.2); PLT 282 X1000 (130-400); RBC 3.84 XMIL (4.7-6.1); RDW 13.4 % (11.5-14.5); WBC 12.28 X1000 (4.8-10.8)
[2019-03-06 07:45] LABS: AGAP 13; BUN 24 mg/dL (8-22); CALCIUM 8.7 mg/dL (8.8-10.2); CHLORIDE 101 mmol/L (98-107); COSMO 286; CREATININE 0.9 mg/dL (0.7-1.2); ESTIMATED GFR > 60; GLUCOSE 150 mg/dL (70-104); SODIUM 140 mmol/L (136-145); TCO2 26 mmol/L (25-35)
[2019-03-06] MEDS: DUONEB (A & A) INH PRN (07:52)
--- NOTE | 2019-03-06 07:56 | Diag Imaging Result Doc PS360 ---
CHEST-PORTABLE - 03/06/2019 INDICATION: abnormal exam COMPARISON: 03/05/2019 FINDINGS: Stable opacity in the left upper lobe. No new infiltrates. No pneumothorax or pleural effusion. Heart size is normal. IMPRESSION: No complication or change from prior. Electronically signed by Karson Finn 03/06/2019 7:53 AM
[2019-03-06] MEDS: FLOMAX PO SCH (08:50)
[2019-03-06] MEDS: CASODEX PO SCH (08:50)
[2019-03-06] MEDS: ARICEPT PO SCH (08:50)
[2019-03-06] MEDS: DUONEB (A & A) INH SCH ×3 (09:16→21:15)
[2019-03-06] MEDS: LEVAQUIN 500 MG/D5W 500 MG/100 ML IVPB IV SCH (12:27)
[2019-03-06] MEDS ORDERED: ATIVAN IV ONE (15:06)
--- NOTE | 2019-03-06 19:51 | PROGRESS NOTE ---
DATE: 03/06/2019 SUBJECTIVE: The patient is resting comfortably in bed. He is slightly confused, but he has no complaints. OBJECTIVE: Vital Signs: Temperature 97.8, blood pressure 135/70, heart rate 83, respirations 20, O2 saturation 95% on 2 L nasal cannula. General: This is a chronically ill- appearing, elderly male, lying in bed in no acute distress. Heart: S1, S2 normal. Regular rate and rhythm. Lungs: Clear to auscultation bilaterally. Abdomen: Positive bowel sounds. Soft, nontender, nondistended. Extremities: No edema, no cyanosis. Neurologic: The patient is awake and alert. LABS: White blood cell count 12, hemoglobin 11, hematocrit 35, platelets 282. Sodium 140, potassium 4, chloride 101, CO2 of 26, BUN 24, creatinine 0.9, glucose 150. ASSESSMENT AND PLAN: 1. Left upper lobe mass. Will await the pathology report. Oncology is following. 2. Chronic obstructive pulmonary disease. Continue with bronchodilator therapy and supplemental oxygen. 3. Prostate cancer. Continue on Casodex. 4. Dementia. Continue on Aricept. DISPOSITION: Stallion Manager is working on inpatient rehab placement for the patient. cc: Jodrana Carreno MD MTDD
[2019-03-06] MEDS: XANAX PO SCH (20:22)
--- NOTE | 2019-03-06 21:16 | PULMONOLOGY PROGRESS NOTE ---
DATE: 03/06/2019 SUBJECTIVE: The patient is awake and alert. He is anxious to go home. He is without new complaints. OBJECTIVE: The patient is afebrile. Blood pressure 149/74, heart rate 80, respiratory rate 22, oxygen saturation 94% on 2 L.HEENT: Pupils are equal and reactive. Oropharynx is clear. Neck reveals a tiny bruise at the site of the CT-guided biopsy. No hematoma. Chest reveals good air entry bilaterally. Cardiac exam: S1, S2. Abdomen is obese and soft. Extremities are without edema. IMPRESSION: An 88-year-old with: 1. Lung mass. 2. Status post CT-guided biopsy. 3. Mild hypoxemic respiratory failure 4. Prostate cancer. 5. Dementia. PLAN: 1. Continue current treatment. 2. Continue Oxygen 3. Awaiting CT guided biopsy cc: Judson López MD [facility]
[2019-03-07] MEDS: SOLU-MEDROL IV SCH ×4 (03:45→20:07)
[2019-03-07] MEDS: PRILOSEC PO SCH (06:35)
[2019-03-07 07:26] LABS: HEMATOCRIT 36.4 % (42.0-52.0); IMM GRAN# 0.03 X1000 (0.0-0.04); IMM GRAN% 0.3 % (0.0-0.5); LYMPH# 0.55 X1000 (1.2-3.4); LYMPH% 5.6 % (20.5-51.1); MCH 30.2 PG (27-31); MCV 91.5 FL (81-99); MONO# 0.58 X1000 (0.11-0.59); MONO% 5.9 % (1.7-9.3); MPV 10.4 FL (7.4-10.4); NEUT# 8.67 X1000 (1.4-6.5); NEUT% 88.2 % (42.2-75.2); PLT 298 X1000 (130-400); RBC 3.98 XMIL (4.7-6.1); RDW 13.8 % (11.5-14.5); WBC 9.83 X1000 (4.8-10.8)
[2019-03-07 07:30] LABS: AGAP 10; BUN 26 mg/dL (8-22); CALCIUM 8.7 mg/dL (8.8-10.2); CHLORIDE 104 mmol/L (98-107); COSMO 290; CREATININE 0.9 mg/dL (0.7-1.2); ESTIMATED GFR > 60; GLUCOSE 145 mg/dL (70-104); POTASSIUM 4.3 mmol/L (3.5-5.1); SODIUM 142 mmol/L (136-145); TCO2 28 mmol/L (25-35)
[2019-03-07] MEDS: DUONEB (A & A) INH PRN (07:56)
[2019-03-07] MEDS: FLOMAX PO SCH (10:16)
[2019-03-07] MEDS: CASODEX PO SCH (10:16)
[2019-03-07] MEDS: ARICEPT PO SCH (10:16)
[2019-03-07] MEDS: DUONEB (A & A) INH SCH ×3 (11:40→21:10)
[2019-03-07] MEDS: LEVAQUIN 500 MG/D5W 500 MG/100 ML IVPB IV SCH (15:55)
[2019-03-07] MEDS: TYLENOL PO PRN (16:19)
--- NOTE | 2019-03-07 16:25 | PULMONOLOGY PROGRESS NOTE ---
DATE: 03/07/2019 SUBJECTIVE: The patient is lying comfortably in his bed. He is completing a bath. He reports being cold but has no other complaints. OBJECTIVE: Vital Signs: The patient is afebrile. Blood pressure is 146/74, heart rate 85, respiratory rate 24, oxygen saturation 93% on 3 L per nasal cannula. HEENT: Pupils are equal and reactive. Oropharynx is clear. Neck: Supple. Chest: Reveals prolonged expiratory phase. Cardiac exam: S1, S2. Abdomen: Soft without hepatosplenomegaly. Extremities without edema. LABORATORIES: White blood count 9.8, hemoglobin 12.0, platelet count 298,000. Sodium 142, potassium 4.3, chloride 104, bicarbonate 28, BUN 26, creatinine 0.9. IMPRESSION: An 88-year-old with: 1. Lung mass status post CT-guided biopsy. 2. Mild hypoxemic respiratory failure. 3. Prostate cancer. 4. Dementia. PLAN: 1. Continue oxygen therapy. 2. Await CT-guided biopsy report. cc: Judson López MD
--- NOTE | 2019-03-07 17:11 | PROGRESS NOTE ---
DATE: 03/07/2019 SUBJECTIVE: The patient is resting comfortably in bed. He has no complaints at this time. OBJECTIVE: Vital Signs: Temperature 97.4, blood pressure 146/74, heart rate 85, respirations 24. O2 sats 97% on 3 L nasal cannula. General: This is a chronically ill-appearing elderly male lying in bed in no acute distress. Heart: S1, S2 normal. Regular rate and rhythm. Lungs: Equal air entry bilaterally. No crackles. No rales. Abdomen: Positive bowel sounds. Soft, nontender, nondistended. Extremities: No edema, no cyanosis. Neurologic: The patient is awake and alert. LABS: Reviewed. ASSESSMENT AND PLAN: 1. Left upper lobe mass status post CT-guided biopsy. Pathology is currently pending. 2. COPD. Stable. 3. Prostate cancer. Continue on Casodex. 4. Dementia. Continue on Aricept. 5. Disposition. [facility] is working on placement for the patient. Continue with physical therapy. cc: Jordana Carreno MD
[2019-03-07] MEDS: XANAX PO SCH (20:06)
[2019-03-08] MEDS: TYLENOL PO PRN (02:16)
[2019-03-08] MEDS: SOLU-MEDROL IV SCH ×4 (02:16→20:04)
[2019-03-08] MEDS: PRILOSEC PO SCH ×2 (05:39→06:34)
[2019-03-08 07:04] LABS: AGAP 6; BUN 23 mg/dL (8-22); CALCIUM 8.4 mg/dL (8.8-10.2); CHLORIDE 103 mmol/L (98-107); COSMO 285; ESTIMATED GFR > 60; GLUCOSE 141 mg/dL (70-104); POTASSIUM 4.3 mmol/L (3.5-5.1); SODIUM 140 mmol/L (136-145); TCO2 31 mmol/L (25-35)
[2019-03-08] MEDS: ARICEPT PO SCH (08:29)
[2019-03-08] MEDS: CASODEX PO SCH (08:29)
[2019-03-08] MEDS: FLOMAX PO SCH (08:29)
[2019-03-08] MEDS: DUONEB (A & A) INH SCH ×3 (11:20→22:40)
[2019-03-08] MEDS: COREG PO SCH ×2 (12:08→20:03)
[2019-03-08] MEDS: LEVAQUIN 500 MG/D5W 500 MG/100 ML IVPB IV SCH (13:34)
--- NOTE | 2019-03-08 15:14 | PROGRESS NOTE ---
DATE: 03/08/2019 SUBJECTIVE: The patient is resting comfortably. OBJECTIVE: Vital Signs: Temperature 98.4, blood pressure 172/85, heart rate 88, respirations 22. O2 sats 96% on 2 L nasal cannula. General: This is a chronically ill-appearing elderly male lying in bed in no acute distress. Heart: S1, S2 normal. Regular rate and rhythm. Lungs: Equal air entry bilaterally. No crackles. No rales. Abdomen: Positive bowel sounds. Soft, nontender, nondistended. Extremities: No edema, no cyanosis. Neurologic: The patient is awake and alert. The patient does have periods of confusion. LABS: Sodium 140, potassium 4.3, chloride 103, CO2 31, BUN 23, creatinine 1, glucose 141. ASSESSMENT AND PLAN: 1. Nonsmall cell lung cancer. Will await the treatment plan by the oncologist. 2. COPD. Stable. 3. Dementia. Continue on Aricept. 4. Prostate cancer. Continue on Casodex. 5. Disposition. Continue with physical therapy. The patient has a bed available at [facility] in [place] once stable for discharge. cc: Jordana Carreno MD [facility]
[2019-03-08] MEDS ORDERED: ATIVAN IM PRN (16:44)
[2019-03-08] MEDS ORDERED: ATIVAN IV ONE (16:45)
--- NOTE | 2019-03-08 17:16 | HEMO/ONC PROGRESS NOTE ---
DATE: 03/08/2019 I tried to stop by and see the patient with a family member but he had no family members in his room. Per his history, he has advanced Alzheimer's dementia. He recently was found to have a new lung mass. Patient has a history of prostate cancer. There is a chance that this new lung mass is a new primary lung cancer. Due to his comorbidities and overall status, we are trying to discuss with the family the possibility of proceeding with hospice versus treatment. I did try to contact the power of ip attorney via telephone today but there was no answer. We will continue to follow along and try to meet up with the family to have more complete discussion on treatment options going forward. Dictated by JAVAD Ackerman for James Coffman MD cc: James Coffman MD
[2019-03-08] MEDS: XANAX PO SCH (20:03)
[2019-03-08] MEDS ORDERED: ATIVAN IV PRN (20:45)
[2019-03-09] MEDS: SOLU-MEDROL IV SCH ×2 (04:05→10:25)
[2019-03-09 06:22] LABS: HEMATOCRIT 37.7 % (42.0-52.0); MCH 30.2 PG (27-31); MCHC 31.8 g/dL (33-37); MCV 94.7 FL (81-99); MPV 10.1 FL (7.4-10.4); RBC 3.98 XMIL (4.7-6.1); RDW 14.3 % (11.5-14.5); WBC 10.1 X1000 (4.8-10.8)
[2019-03-09 06:46] LABS: AGAP 7; BUN 27 mg/dL (8-22); CALCIUM 8.2 mg/dL (8.8-10.2); CHLORIDE 104 mmol/L (98-107); COSMO 287; CREATININE 0.9 mg/dL (0.7-1.2); ESTIMATED GFR > 60; GLUCOSE 116 mg/dL (70-104); POTASSIUM 4.9 mmol/L (3.5-5.1); SODIUM 141 mmol/L (136-145); TCO2 30 mmol/L (25-35)
[2019-03-09] MEDS: ARICEPT PO SCH (08:44)
[2019-03-09] MEDS: FLOMAX PO SCH (08:44)
[2019-03-09] MEDS: COREG PO SCH (08:44)
[2019-03-09] MEDS: CASODEX PO SCH (08:45)
[2019-03-09] MEDS: PRILOSEC PO SCH (08:45)
--- NOTE | 2019-03-09 10:38 | PROGRESS NOTE ---
DATE: 03/09/2019 The patient admitted on 03/04/2019 came in with fever, chills, and malaise. This is an 88-year- old male with history of frequent UTIs, COPD, uses O2 at home as well as baseline dementia. Could not really tell what brought him to the emergency room except that he was sent by assisted living. He denied cough. He denied any headache, fever, and really actually denied cough. No nausea. Case Management had spoken with the power of fuel oil clerk, his son Valentin Johnson. Currently he was out of town when he came in. He lives at [facility] in [place], and they have paid caregivers. The son became increasingly concerned about his declining mobility status and wants to pursue rehabilitation with transition to long-term care worked up for possible infection. He had a left atypical pulmonary mass. Recommended follow- up CT scan. The CT of the chest and abdomen and pelvis showed left upper lobe malignant- appearing mass with bronchial obstruction and hilar adenopathy. Appears to be adherent to the mediastinal pleura. Severe colonic diverticulitis without evidence of acute diverticulitis. No evidence of metastatic disease. The patient recently diagnosed with prostate cancer back in January, underwent TURP per Dr. Inder Mccann back on January 30. Had a nuclear scan back in February, which showed multiple-joint degenerative uptake, most prominent in the shoulders. A band-like increased uptake in the thoracic spine. PAST MEDICAL HISTORY SUMMARIZED: 1. New diagnosis of prostate cancer, now with a left upper lobe malignant- appearing mass with bronchial obstruction and hilar adenopathy. 2. Prostate cancer, diagnosis in January. 3. Frequent UTIs. 4. COPD. 5. Alzheimer's dementia. OBJECTIVE: On exam today, sitting up in a chair. He would really like to go home. He says he does not have oxygen at home. His temperature is 97.6 degrees, pulse 84, respirations 20, blood pressure 174/93. Pupils are equal. Lungs are clear in all lung marcial. Cardiovascular: Regular rhythm and rate without murmur or S3. Abdomen is soft. Skin is warm and dry. REVIEW OF ORDERS: The patient on Xanax 0.5 mg at bedtime, Coreg 12.5 mg q.12 h., Casodex 50 mg daily, Aricept 5 mg a day, Levaquin 500 mg IV q.24 h., methylprednisolone 40 mg IV q.6 h., Prilosec 20 mg a day, Flomax 0.4 mg a day. LABORATORY DATA: From this morning, white count 10,100, hematocrit 37, platelet count 273,000. Sodium 141, potassium 4.9, chloride 104, BUN 27, creatinine 0.9. cc: Sung Lima MD [facility]
[2019-03-09] MEDS: DUONEB (A & A) INH SCH ×2 (10:43→15:51)
[2019-03-09] MEDS: LEVAQUIN 500 MG/D5W 500 MG/100 ML IVPB IV SCH (12:22)
[2019-03-09 16:01] VITALS: BP 138/96
--- NOTE | 2019-03-09 16:52 | DISCHARGE SUMMARY ---
ADMISSION DATE: 03/04/2019 DISCHARGE DATE: PRIMARY CARE PHYSICIAN: Dr. Arielle Lopez. HISTORY OF PRESENT ILLNESS: An 88-year-old gentleman who presented to the emergency room on 03/04/2019, reporting frequent UTIs and COPD. He uses home O2 as well as baseline. He had some baseline dementia. He later denied that he had home O2. He could not really tell the examining physician on presentation what was the reason he was sent over there. He appeared alert, knew his date of and who the President was. He could not tell the correct year. He denied any headache, fever, chills, cough, shortness of breath, chest pain, palpitations or abdominal pain. No nausea. His son Valentin Johnson was out of town, but has power of compliance attorney. He reports that due to the fact they live in [facility] and have paid caregivers, they are looking to try and pursue rehab with pursuit of long-term care. He was initially worked up for sepsis secondary to low-grade fever. His chest x-ray had what looked like a left atypical infiltrate and recommended followup CT to make sure there was not a typical mass. CT of chest, abdomen and pelvis showed left upper lobe malignant-appearing mass with bronchial obstruction and hilar adenopathy; he appears to have some adherence to the mediastinal pleura; severe colonic diverticulitis without evidence of acute diverticulitis; no evidence of metastatic disease. The patient has recently been diagnosed with prostate cancer and underwent TURP per Dr. Inder Mccann on 01/30. He had nuclear bone scan in February which showed multi-joint degenerative uptake, most prominent in the shoulders, bandlike, increased uptake in the midthoracic spine. I do not believe he had been set up to follow up with any oncology when he first came in. PAST MEDICAL HISTORY: 1. New diagnosis of prostate cancer, now with left upper lobe malignant-appearing mass on presentation; bronchial obstruction and hilar adenopathy. 2. Prostate cancer diagnosed in January of this year. 3. Frequent UTIs. 4. COPD. 5. Alzheimer dementia. PAST SURGICAL HISTORY: 1. Status post TURP per Dr. Mccann on 01/30/2019. 2. He appeared to have some skin cancer spots removed, I think from his head at various places. ADMISSION DIAGNOSES: 1. Left upper lobe questionable malignant-appearing mass versus pneumonia, with some hilar adenopathy and some adherence to the mediastinal pleura. 2. Known prostate cancer, diagnosed in 01/2019. 3. Chronic obstructive pulmonary disease, on home oxygen, in mild exacerbation. We continued bronchodilators, supplemental oxygen. 4. Questionable postobstructive pneumonia. Started on antibiotics. 5. Urinary tract infection. He gets chronic urinary tract infections. His urinalysis was negative. 6. Alzheimer dementia. HOSPITAL COURSE: He was admitted to the hospital. Hematology/Oncology was asked to see. Dr. Olive Ambrose evaluated lung mass highly suspicious for malignancy. They discussed with family. He had, I believe, a bronchoscopy and lung biopsy per CT scan was successful. Dr. López, bank and savings securities trader, followed as well. 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 He has advanced dementia. There is a chance that this new lung mass is a new primary lung cancer. Due to his comorbidities and overall status, they I think were going to have discussions with the son about treatment options. He has a place ready to go to [place], but I do not know that we have discussed with the son the treatment options and the fact that this is a [id number] adenocarcinoma. Waiting on final pathology. I think those discussions can be had as an outpatient, so we will discharge him home. He really wants to go back to assisted living with his , but his cannot care for him at this time. We will try and get him to [facility]. DISCHARGE MEDICATIONS: We will let him stay on the DuoNeb as needed, Xanax 0.5 mg at bedtime, Casodex 50 mg daily, Coreg 12.5 mg q.12 hours, Aricept 5 mg q.a.m. We will finish another 7 days of Levaquin 500 mg p.o. daily. Ativan we will stop; he was getting that IV. We will stop his Solu-Medrol. Prilosec 20 mg a day, Flomax 0.4 mg a day. cc: Sung Lima MD
[2019-03-09] MEDS ORDERED: SOLU-MEDROL IV SCH (18:00)
== END 2019-03-09 18:38 | DRG 180 ==
LOC: SUPCPDRO → ED 08:01 → 4N 12:38 → SUATTDRO 12:38
PROVIDERS: ATTEND Emergency Medicine
CPT/HCPCS: 32405; 71010; 71020; 71045; 71046; 71260; 74177; 77012; 80048; 80053; 81001; 82550; 82805; 83605; 83880; 84484; 85025; 85027; 85610; 85730; 87040; 88305; 94640; 94761; 97110; 97161; 97166; 97530; 99284; A9270; J1956; J2060; J2543; J2920; J3370; J7030; Q9967